=== PATIENT | female | born 1960 | race Caucasian/White ===

== ENCOUNTER 2016-07-11 21:35 | Emergency (ER) | payer SELFPAY ==
[~2016-07-11] VITALS: Ht 165.1 cm; Wt 86.3 kg
[~2016-07-11 21:35] MED LIST: AUGM875T PO; PERC5TAB12 PO
[2016-07-11 21:45] VITALS: BP 152/84; PULSE 97; RESP 18; TEMP 98.7; O2SAT 97
[2016-07-11] MEDS ORDERED: LEVOFLOXACIN 750 MG TAB PO ONE (22:30)
[2016-07-11] MEDS ORDERED: RESP: ALBUTEROL 2.5 MG/IPRATROPIUM 0.5 MG NEB (SCH) INH ONE (22:30)
[2016-07-11] MEDS ORDERED: predniSONE 20 MG TAB PO ONE (22:30)
--- NOTE | 2016-07-11 22:36 | PD ---
HPI Chief Complaint: Respiratory Symptoms Time Seen by Provider: 22:29 Travel History International Travel<30 days: No Contact w/Intl Traveler<30days: No Traveled to known affect area: No History of Present Illness HPI 56-year-old female presents the emergency Department with 3 week history of respiratory congestion, sinus congestion, postnasal drip, intermittent sore throat, and worsening cough over the last week. Patient states it started 3 weeks ago improve somewhat with take short course of cefuroxime by mouth, that she took for 5 days. Symptoms then worsened and the patient took a short course of ciprofloxacin with mild improvement. These ended several days ago and now she is having worsening symptoms especially with sinus congestion, postnasal drip, sore throat, and hacking cough. Patient has mild wheezing and dyspnea with exertion. She denies chest pain however and no nausea vomiting or diarrhea. She has had chills but no specific reports of fever. Patient has multiple medication allergies, and her steroid allergies are to the skin, but she has taken oral prednisone in the past without difficulty. PFSH Past Medical History Hx Anticoagulant Therapy: No Cancer: Yes (BONE MARROW) Diabetes: No Diminished Hearing: No Glaucoma: No Hepatitis: No Hiatal Hernia: No Hypertension: No Immunizations Current: Yes Thyroid Disease: No Past Surgical History Abdominal Surgery: Yes (APPENDECTOMY, CHOLECYSTECTOMY) Cardiac Surgery: No Ear Surgery: No Endocrine Surgery: No Eye Surgery: No Genitourinary Surgery: No Gynecologic Surgery: Yes (RIGHT OVARY REMOVED) Oral Surgery: Yes (4 WISDOMS TEETH REMOVED) Pacemaker: No Thoracic Surgery: No Other Surgery: Yes Social History Alcohol Use: No Tobacco Use: No Substance Use: No Allergies-Medications (Allergen,Severity, Reaction): Coded Allergies: Dexamethasone (Verified Allergy, Severe, Hives, 03/12/16) Dilaudid (Verified Allergy, Severe, Anaphylaxis, 03/12/16) Fiorinal (Verified Allergy, Severe, Anaphylaxis, 03/12/16) Inderal (Verified Allergy, Severe, 03/12/16) Kenalog (Verified Allergy, Severe, 03/12/16) EATS SUBQUT. TISSUE Marcaine (Verified Allergy, Severe, Anaphylaxis, 03/12/16) Morphine (Verified Allergy, Severe, Anaphylaxis, 03/12/16) Sulfa (Verified Allergy, Severe, 03/12/16) Darvocet-N 100 (Verified Allergy, Intermediate, 03/12/16) Reported Meds & Prescriptions Reported Meds & Active Scripts Active Percocet (Oxycodone-Acetaminophen) 5-325 mg Tab 1 Tab PO Q8HR PRN Augmentin (Amoxicillin-Clavulanate) 875-125 mg Tab 875 Mg PO Q12HR 10 Days not for use in CrCl <30 ml/min. Review of Systems Except as stated in HPI: all other systems reviewed are Neg General / Constitutional: Positive: Chills, No: Fever Eyes: No: Visual changes HENT: Positive: Headaches, Sore Throat, Rhinitis, Rhinorrhea, Congestion, No: Nosebleed, Neck Stiffness, Neck Pain, Masses, Gingival Bleeding, Dental Difficulties, Ear Discharge, Earache Cardiovascular: No: Chest Pain or Discomfort Respiratory: Positive: Cough, Shortness of Breath, Wheezing, No: Sneezing, Orthopnea, Hemoptysis, Stridor, Night Sweats, Pleuritic Pain Gastrointestinal: No: Nausea, Vomiting, Diarrhea, Abdominal Pain Genitourinary: No: Dysuria Musculoskeletal: No: Pain Skin: No Rash Neurologic: No: Weakness Psychiatric: No: Depression Endocrine: No: Polydipsia Hematologic/Lymphatic: No: Easy Bruising Physical Exam Narrative GENERAL: Patient appears in mild distress. SKIN: Warm and dry. Normal color. Normal turgor. No rash. No diaphoresis. HEAD: Atraumatic. Normocephalic. Patient has bilateral sinus tenderness with palpation and percussion. EYES: Pupils equal and round. No scleral icterus. No injection or drainage. Patient has a resolving subconjunctival hematoma on the left inner sclera. ENT: No nasal bleeding but white nasal discharge is present. Mucous membranes pink and moist. Pharynx appears cobblestoned and mildly erythematous with postnasal drip present. No significant lymphadenopathy is noted. TMs are clear bilaterally. NECK: Trachea midline. Neck is supple without significant lymphadenopathy. CARDIOVASCULAR: Regular rate and rhythm. RESPIRATORY: No accessory muscle use. Coarse with mild expiratory wheezes to auscultation. Breath sounds equal bilaterally. GASTROINTESTINAL: Abdomen soft, non-tender, nondistended. Hepatic and splenic margins not palpable. MUSCULOSKELETAL: Extremities without clubbing, cyanosis, or edema. No obvious deformities. NEUROLOGICAL: Awake and alert. No obvious cranial nerve deficits. Motor grossly within normal limits. Five out of 5 muscle strength in the arms and legs. Normal speech. PSYCHIATRIC: Appropriate mood and affect; insight and judgment normal. Data Data Last Documented VS Vital Signs Date Time Temp Pulse Resp B/P Pulse Ox O2 Delivery O2 Flow Rate FiO2 07/11/16 21:45 98.7 97 18 152/84 97 Orders Prednisone (Deltasone) (07/11/16 22:30) Albuterol-Ipratropium Neb (Duoneb Neb) (07/11/16 22:30) Levofloxacin (Levaquin) (07/11/16 22:30) MDM Medical Decision Making Medical Screen Exam Complete: Yes Emergency Medical Condition: Yes Differential Diagnosis Sinusitis. Bronchitis. Wheezing. Narrative Course Patient is medically stable at time of exam Chest x-ray is not felt warranted based on my history and physical. Patient is given a DuoNeb nebulizer treatment 1 here. Patient is given 60 mg prednisone by mouth. Patient is given her first dose of Levaquin 750 mg by mouth. Patient will be continued on prednisone 20 mg twice a day 5 days. Patient will continue on Levaquin 500 mg daily 10 days. Patient is given an albuterol metered-dose inhaler 2 puffs every 4-6 hours when necessary. Patient should rest and push fluids follow-up with her primary care physician as needed. Patient can return to emergency department if worsening symptoms develop as needed. Diagnosis Primary Impression: Sinusitis, acute maxillary Qualified Code: J01.00 - Acute maxillary sinusitis, recurrence not specified Additional Impression: Acute wheezy bronchitis Referrals: Primary Care Physician Patient Instructions: Acute Bronchitis (ED), General Instructions, How to Use a Metered-Dose Inhaler (ED), Sinusitis (ED) Additional Instructions: Chest x-ray is not felt warranted based on my history and physical. Patient is given a DuoNeb nebulizer treatment 1 here. Patient is given 60 mg prednisone by mouth. Patient is given her first dose of Levaquin 750 mg by mouth. Patient will be continued on prednisone 20 mg twice a day 5 days. Patient will continue on Levaquin 500 mg daily 10 days. Patient is given an albuterol metered-dose inhaler 2 puffs every 4-6 hours when necessary. Patient should rest and push fluids follow-up with her primary care physician as needed. Patient can return to emergency department if worsening symptoms develop as needed. Med/Other Pt SpecificInfo: Prescription(s) given Disposition: 01 DISCHARGE HOME Condition: Stable Robert Wilkins Jul 11, 2016 22:36
[2016-07-11] MEDS ORDERED: PRED20 PO (22:37)
[2016-07-11] MEDS ORDERED: LEVA500T PO (22:37)
[2016-07-11] MEDS ORDERED: VENTAER INH (22:37)
== END 2016-07-11 22:55 | disposition home or self-care (01) ==
LOC: PHEFT 21:35
DX: J01.00 Acute maxillary sinusitis, unspecified (principal); J20.9 Acute bronchitis, unspecified
CPT/HCPCS: 94664; 99283; J7512

== ENCOUNTER 2016-07-29 22:12 | Emergency (ER) | payer SELFPAY ==
[~2016-07-29] VITALS: Ht 162.6 cm; Wt 84.8 kg
[~2016-07-29 22:12] MED LIST changes: +LEVA500T PO; +PRED20 PO; +VENTAER INH
[2016-07-29 22:17] VITALS: BP 144/91; PULSE 89; RESP 16; TEMP 98.4; O2SAT 100
[2016-07-29] MEDS ORDERED: SODIUM CHLORIDE 0.9% FLUSH 10 ML FLUSH IVF PRN (22:45)
--- NOTE | 2016-07-29 22:47 | PD ---
HPI Chief Complaint: Cold / Flu Symptoms Time Seen by Provider: 22:33 Travel History International Travel<30 days: No Contact w/Intl Traveler<30days: No Traveled to known affect area: No History of Present Illness HPI The patient is a 56-year-old female that has been coughing up green sputum for 6 days. The cough is persistent but she states she only gets short of breath if she walks around. She has had some nausea. She has chest discomfort in the anterior portion of her chest bilaterally. She completed a course of Levaquin about a week and a half ago. The Levaquin was 4 maxillary sinusitis. She does not smoke. 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 )) Diabetes: No Diminished Hearing: No Glaucoma: No Hepatitis: No Hiatal Hernia: No Hypertension: No Immunizations Current: Yes Pneumonia: Yes Thyroid Disease: No Influenza Vaccination: No ?: Not : 0 Past Surgical History Abdominal Surgery: Yes Appendectomy: Yes Cardiac Surgery: No Cholecystectomy: Yes Ear Surgery: No Endocrine Surgery: No Eye Surgery: No Genitourinary Surgery: No Gynecologic Surgery: Yes (RIGHT OVARY REMOVED) Oral Surgery: Yes (4 WISDOMS TEETH REMOVED) Pacemaker: No Thoracic Surgery: No Other Surgery: Yes (LIVER BIOPSY) Social History Alcohol Use: No Tobacco Use: No Substance Use: No Allergies-Medications (Allergen,Severity, Reaction): Coded Allergies: Dexamethasone (Verified Allergy, Severe, Hives, 03/12/16) Dilaudid (Verified Allergy, Severe, Anaphylaxis, 03/12/16) Fiorinal (Verified Allergy, Severe, Anaphylaxis, 03/12/16) Inderal (Verified Allergy, Severe, 03/12/16) Kenalog (Verified Allergy, Severe, 03/12/16) EATS SUBQUT. TISSUE Marcaine (Verified Allergy, Severe, Anaphylaxis, 03/12/16) Morphine (Verified Allergy, Severe, Anaphylaxis, 03/12/16) Sulfa (Verified Allergy, Severe, 03/12/16) Darvocet-N 100 (Verified Allergy, Intermediate, 03/12/16) Reported Meds & Prescriptions Reported Meds & Active Scripts Active Review of Systems Except as stated in HPI: all other systems reviewed are Neg Physical Exam Narrative GENERAL: The patient is alert, oriented 3 in moderate distress with her persistent cough. She is in no respiratory distress. Her vital signs show blood pressure 144/91 and otherwise normal. The respirations are only 16 and oximetry is 100%. SKIN: Focused skin assessment warm/dry. HEAD: Atraumatic. Normocephalic. EYES: Pupils equal and round. No scleral icterus. No injection or drainage. ENT: No nasal bleeding or discharge. Mucous membranes pink and moist. The throat is clear without erythema, exudate or abscess. There is no sinus tenderness present. NECK: Trachea midline. No JVD. CARDIOVASCULAR: Regular rate and rhythm. No murmur appreciated. RESPIRATORY: No accessory muscle use. A few scattered wheezes and rhonchi are heard bilaterally. Breath sounds equal bilaterally. GASTROINTESTINAL: Abdomen soft, non-tender, nondistended. Hepatic and splenic margins not palpable. No guarding or rebound is present. MUSCULOSKELETAL: No obvious deformities. No clubbing. No cyanosis. No edema. NEUROLOGICAL: Awake and alert. No obvious cranial nerve deficits. Motor grossly within normal limits. Normal speech. PSYCHIATRIC: Appropriate mood and affect; insight and judgment normal. Data Data Last Documented VS Vital Signs Date Time Temp Pulse Resp B/P Pulse Ox O2 Delivery O2 Flow Rate FiO2 07/29/16 23:15 99 Room Air 07/29/16 23:15 81 16 07/29/16 22:17 98.4 144/91 Orders Complete Blood Count With Diff (07/29/16 22:41) Comprehensive Metabolic Panel (07/29/16 22:41) Influenzae A/B Antigen (07/29/16 22:41) Iv Access Insert/Monitor (07/29/16 22:41) Ecg Monitoring (07/29/16 22:41) Oximetry (07/29/16 22:41) Oxygen Administration (07/29/16 22:41) Chest, Pa & Lat (07/29/16 22:41) Sodium Chloride 0.9% Flush (Ns Flush) (07/29/16 22:45) Albuterol-Ipratropium Neb (Duoneb Neb) (07/29/16 22:45) Sodium Chlor 0.9% 1000 Ml Inj (Ns 1000 M (07/29/16 23:00) Labs Laboratory Tests Test 07/29/16 23:05 White Blood Count 8.3 TH/MM3 Red Blood Count 3.93 MIL/MM3 Hemoglobin 12.3 GM/DL Hematocrit 36.3 % Mean Corpuscular Volume 92.5 FL Mean Corpuscular Hemoglobin 31.4 PG Mean Corpuscular Hemoglobin 33.9 % Concent Red Cell Distribution Width 13.1 % Platelet Count 205 TH/MM3 Mean Platelet Volume 8.5 FL Neutrophils (%) (Auto) 56.1 % Lymphocytes (%) (Auto) 29.9 % Monocytes (%) (Auto) 11.1 % Eosinophils (%) (Auto) 1.9 % Basophils (%) (Auto) 1.0 % Neutrophils # (Auto) 4.6 TH/MM3 Lymphocytes # (Auto) 2.5 TH/MM3 Monocytes # (Auto) 0.9 TH/MM3 Eosinophils # (Auto) 0.2 TH/MM3 Basophils # (Auto) 0.1 TH/MM3 CBC Comment DIFF FINAL Differential Comment Sodium Level 143 MEQ/L Potassium Level 4.0 MEQ/L Chloride Level 108 MEQ/L Carbon Dioxide Level 25.1 MEQ/L Anion Gap 10 MEQ/L Blood Urea Nitrogen 19 MG/DL Random Glucose 94 MG/DL Calcium Level 9.7 MG/DL Albumin 3.7 GM/DL MDM Medical Decision Making Medical Screen Exam Complete: Yes Emergency Medical Condition: Yes Medical Record Reviewed: Yes Interpretation(s) The chest x-ray shows no evidence of pneumonia. The CBC is normal. The influenza A/B antigen is negative for flu a and flu B antigen. Differential Diagnosis Pneumonia, bronchitis, immune disorder, electrolyte imbalance, sinusitis, flu syndrome, nonspecific viral syndrome Narrative Course The patient has a few scattered rhonchi present but the x-ray is normal. She has bronchitis. Unfortunately, this patient does have an immune disorder and despite possible viral etiology for this I will put her on antibiotics. She states Zithromax never works and wants another medication. I will put her on Augmentin. She did get some relief with the DuoNeb treatments. She is encouraged to use her albuterol HFA at home. Diagnosis Primary Impression: Acute wheezy bronchitis Additional Instructions: Follow-up next week with your primary care physician. Med/Other Pt SpecificInfo: Prescription(s) given Scripts Amoxicillin-Clavulanate (Augmentin)875-125 mg [id number] Mg PO BID 10 Days Ref 0 not for use in CrCl <30 ml/min. Prov:Desean Bhardwaj MD 07/29/16 Disposition: 01 DISCHARGE HOME Condition: Stable Desean Bhardwaj MD Jul 29, 2016 22:47
[2016-07-29] MEDS: RESP: ALBUTEROL 2.5 MG/IPRATROPIUM 0.5 MG NEB (SCH) INH (22:55)
--- NOTE | 2016-07-29 22:58 | RADHPO ---
EXAM DATE/TIME: 07/29/2016 22:50 [facility] COMPARISON: No previous studies available for comparison. INDICATIONS : Cough and congestion since June 16. MEDICAL HISTORY : None. SURGICAL HISTORY : [place]. ENCOUNTER: Initial ACUITY: 1 month PAIN SCORE: 0/10 LOCATION: Bilateral chest FINDINGS: PA and lateral views of the chest demonstrate the lungs to be symmetrically aerated without evidence of mass, infiltrate or effusion. The cardiomediastinal contours are unremarkable. Osseous structure s are intact. There is a right subclavian implantable port catheter in place with the tip in the supe rior vena cava. There are surgical clips in the upper right abdomen consistent with prior cholecystec ricardo. CONCLUSION: No acute disease. There is no evidence of pneumonia. Enzo Pearl MD on July 29, 2016 at 22:56 Board Certified Radiologist. This report was verified electronically.
[2016-07-29] MEDS ORDERED: SODIUM CHLOR 0.9% 1000 ML INJ 1,000 ML IV SCH (23:00)
[2016-07-29 23:15] VITALS: PULSE 81; RESP 16; O2SAT 99
[2016-07-29 23:18] LABS: AUTOMATED NEUTROPHIL # 4.6 TH/MM3 (1.8-7.7); BASOPHIL # 0.1 TH/MM3 (0-0.2); EOSINOPHIL # 0.2 TH/MM3 (0-0.4); EOSINOPHIL % 1.9 % (0.0-4.0); HEMATOCRIT 36.3 % (35.0-46.0); HEMO FLAGS DIFF FINAL; LYMPH % 29.9 % (9.0-44.0); LYMPHOCYTE # 2.5 TH/MM3 (1.0-4.8); MEAN CELL VOLUME 92.5 FL (80.0-100.0); MEAN CORPUSCULAR HEMOGLOBIN 31.4 PG (27.0-34.0); MEAN CORPUSCULAR HGB CONC 33.9 % (32.0-36.0); MONO % 11.1 % (0.0-8.0); NEUT % 56.1 % (16.0-70.0); PLATELET COUNT 205 TH/MM3 (150-450); RED BLOOD COUNT 3.93 MIL/MM3 (4.00-5.30); RED CELL DISTRIBUTION WIDTH 13.1 % (11.6-17.2); WHITE BLOOD COUNT 8.3 TH/MM3 (4.0-11.0)
[2016-07-29 23:27] LABS: CHLORIDE 108 MEQ/L (98-107); SODIUM (NA) 143 MEQ/L (136-145)
[2016-07-29 23:30] LABS: ANION GAP 10 MEQ/L (5-15); BICARBONATE 25.1 MEQ/L (21.0-32.0); BLOOD UREA NITROGEN 19 MG/DL (7-18)
[2016-07-29 23:33] LABS: ALT (GPT) 38 U/L (10-53); AST (GOT) 26 U/L (15-37)
[2016-07-29 23:34] LABS: GLOMERULAR FILTRATION RATE 90 ML/MIN (>89)
[2016-07-29 23:35] LABS: TOTAL BILIRUBIN ADULT 0.7 MG/DL (0.2-1.0)
[2016-07-29 23:36] LABS: ALKALINE PHOSPHATASE 132 U/L (45-117)
[2016-07-29] MEDS ORDERED: AUGM875T PO (23:43)
[2016-07-30 00:20] VITALS: BP 140/68; PULSE 82; RESP 16; O2SAT 100
[2016-07-30] MEDS ORDERED: AMOXICILLIN/CLAVULANATE K 875 MG TAB PO ONE (00:30)
== END 2016-07-30 00:39 | disposition home or self-care (01) ==
LOC: PHED 22:12
DX: J40 Bronchitis, not specified as acute or chronic (principal); C85.90 Non-Hodgkin lymphoma, unspecified, unspecified site
CPT/HCPCS: 71020; 80053; 85025; 87804; 94640; 94664; 96360; 99283; J7030

== ENCOUNTER 2017-03-14 22:29 | Emergency (ER) | payer SELFPAY ==
[~2017-03-14 22:29] MED LIST changes: -LEVA500T PO; -PERC5TAB12 PO; -PRED20 PO; -VENTAER INH
[2017-03-14 22:33] VITALS: BP 178/93; PULSE 74; RESP 18; TEMP 98.8; O2SAT 98
[2017-03-14] MEDS ORDERED: oxyCODONE/ACETAMINOPHEN 5 MG/325 MG TAB PO ONE (23:00)
[2017-03-14] MEDS ORDERED: PERC10TA27 PO (23:01)
[2017-03-14] MEDS ORDERED: TYLE325T PO (23:06)
--- NOTE | 2017-03-14 23:13 | PD ---
HPI Chief Complaint: Bite or Sting Time Seen by Provider: 22:49 Travel History International Travel<30 days: No Contact w/Intl Traveler<30days: No Traveled to known affect area: No History of Present Illness HPI This is a 56-year-old female who presents to the emergency department having been attacked by her neighbors dog prior to arrival. She has several bite wounds on her right arm and she thinks her arm twisted because she was holding the leash causing her to have right wrist and hand pain, constant, worse with movement, improved with rest. She also is complaining of some left ankle pain and bruising where the leash tripped her. Her last tetanus shot was in 2011. 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 )) Diabetes: No Diminished Hearing: No Glaucoma: No Hepatitis: No Hiatal Hernia: No Hypertension: No Immunizations Current: Yes Pneumonia: Yes Thyroid Disease: No ?: Not : 0 Past Surgical History Abdominal Surgery: Yes Appendectomy: Yes Cardiac Surgery: No Cholecystectomy: Yes Ear Surgery: No Endocrine Surgery: No Eye Surgery: No Genitourinary Surgery: No Gynecologic Surgery: Yes (RIGHT OVARY REMOVED) Oral Surgery: Yes (4 WISDOMS TEETH REMOVED) Pacemaker: No Thoracic Surgery: No Other Surgery: Yes (LIVER BIOPSY) Social History Alcohol Use: No Tobacco Use: No Substance Use: No Allergies-Medications (Allergen,Severity, Reaction): Coded Allergies: Sulfa (Sulfonamide Antibiotics) (Unverified Allergy, Severe, 03/14/17) aspirin (Unverified Allergy, Severe, Anaphylaxis, 03/14/17) bupivacaine (Unverified Allergy, Severe, Anaphylaxis, 03/14/17) butalbital (Unverified Allergy, Severe, Anaphylaxis, 03/14/17) caffeine (Unverified Allergy, Severe, Anaphylaxis, 03/14/17) dexamethasone (Unverified Allergy, Severe, Hives, 03/14/17) hydromorphone (Unverified Allergy, Severe, Anaphylaxis, 03/14/17) morphine (Unverified Allergy, Severe, Anaphylaxis, 03/14/17) propranolol (Unverified Allergy, Severe, 03/14/17) triamcinolone (Unverified Allergy, Severe, 03/14/17) EATS SUBQUT. TISSUE acetaminophen (Unverified Allergy, Intermediate, 03/14/17) propoxyphene (Unverified Allergy, Intermediate, 03/14/17) Reported Meds & Prescriptions Reported Meds & Active Scripts Active Reported Tylenol (Acetaminophen) 325 Mg Tab 650 Mg PO Q6H PRN Percocet (Oxycodone-Acetaminophen) 10-325 mg Tab 1 Tab PO Q6H PRN Review of Systems Except as stated in HPI: all other systems reviewed are Neg Physical Exam Narrative GENERAL:Well appearing, no acute distress SKIN: 2 cm laceration involving the dorsal right forearm with some adipose tissue exposure, puncture wound right wrist and right volar hand at the base of the thenar eminence with a large amount of ecchymoses along the dorsal aspect of the base of the right thumb HEAD: Atraumatic. Normocephalic. EYES: Pupils equal and round. No injection or drainage. ENT: Moist mucous membranes NECK: Trachea midline. CARDIOVASCULAR: Regular rate and rhythm. No murmur appreciated. 2+ right radial pulse with normal capillary refill. RESPIRATORY: Clear to auscultation. Breath sounds equal bilaterally. GASTROINTESTINAL: Abdomen soft, non-tender, nondistended. MUSCULOSKELETAL: Markedly painful with range of motion of the right from, tender to palpation over the snuffbox and the ulnar aspect of the right wrist. Compartments of the right forearm are soft. Some focal tenderness to palpation over the posterior medial malleolus of the left ankle with some swelling. NEUROLOGICAL: Awake and alert. No obvious cranial nerve deficits. Moving all extremities. PSYCHIATRIC: Appropriate mood and affect; insight and judgment normal. Data Data Last Documented VS Vital Signs Date Time Temp Pulse Resp B/P (MAP) Pulse Ox O2 Delivery O2 Flow Rate FiO2 03/14/17 22:52 20 03/14/17 22:33 98.8 74 178/93 (121) 98 Orders Orders Hand, Complete ([id number]) (03/14/17 ) Wrist, Complete ([id number]) (03/14/17 ) Ankle, Complete ([id number]) (03/14/17 ) Oxycodone-Acetamin 5-325 Mg (Percocet (03/14/17 23:00) Lidocaine Pf 1% Inj (Xylocaine-Mpf 1% In (03/14/17 23:15) MDM Medical Decision Making Medical Screen Exam Complete: Yes Emergency Medical Condition: Yes Interpretation(s) X-ray of hand, wrist and ankle are reassuring Differential Diagnosis Dog bite, laceration, wrist sprain, gamekeeper's thumb, ankle sprain, ankle fracture, compartment syndrome Narrative Course This is a 56-year-old female who presents to the emergency department having been attacked by her neighbors dog. She sustained a significant injury to her wrist because of the way the leash pulled and she feels laxity in her right thumb and she has significant pain with movement of the thumb. She has a lot of bruising over the dorsal aspect of the thumb. I'm concerned for a possible ulnar collateral ligament injury. Patient will be placed in a thumb spica. She does have a laceration along the volar aspect of the right forearm. We had along conversation regarding primary versus secondary closure. Patient would prefer to have the wound closed primarily. 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 She'll be placed on Augmentin. I closed the wound loosely to allow for swelling. Patient was given mandatory referral to hand surgery. Procedures Procedure Narrative LACERATION LOCATION: Dorsal right forearm LENGTH: 2 cm NUMBER OF STITCHES/SALVADOR: 2 REPAIR: The area of the laceration was irrigated with normal saline and sterilely draped. The laceration was infiltrated with 5 cc of 1% lidocaine. The wound was copiously irrigated and explored without evidence of foreign body , tendon injury or neurovascular injury. The wound was closed using 5-0 Prolene. This was a single layer repair. A sterile dressing was applied. The patient was advised to keep the dressing clean and dry. Patient tolerated the procedure well. Diagnosis Primary Impression: Dog bite of right upper extremity Qualified Codes: S41.151A - Open bite of right upper arm, initial encounter; W54.0XXA - Bitten by dog, initial encounter Additional Impression: Injury of ligament of hand Qualified Codes: S69.91XA - Unspecified injury of right wrist, hand and finger (s), initial encounter Patient Instructions: General Instructions Departure Forms: Tests/Procedures, Work Release Special Instructions: Patient must limit use of right upper extremity for 2 weeks until she follows with a hand surgeon. Additional Instructions: If you develop fevers, redness, swelling, or discharge from your wound return to the emergency room. Keep your wound dry for 24 hours. After that time, wash gently with warm soap and water. Do not use peroxide. Do not soak in baths or go swimming. Have your sutures removed in 7-10 days. Follow up with hand surgery and keep your hand splinted until then. Med/Other Pt SpecificInfo: Prescription(s) given Scripts Hydrocodone/Acetaminophen (Hydrocodone-Acetamin 5-325 mg) 5 Mg-325 Mg Tablet 1 TAB PO Q6HR Y for PAIN SCALE 4 TO 10, #8 Prov: Renetta Andrade MD 03/14/17 Amoxicillin-Clavulanate (Augmentin) 875-125 Mg Tab 1 TAB PO BID for Infection for 7 Days, #14 TAB 0 Refills Prov: Renetta Andrade MD 03/14/17 Disposition: 01 DISCHARGE HOME Condition: Stable Renetta Andrade MD Mar 14, 2017 23:13
[2017-03-14] MEDS ORDERED: LIDOCAINE HCL 1% PF 30 ML VIAL INFIL ONE (23:15)
--- NOTE | 2017-03-14 23:32 | RADRPT ---
EXAM DATE/TIME: 03/14/2017 23:07 [facility] COMPARISON: No previous studies available for comparison. INDICATIONS : Dog bite, right hand. MEDICAL HISTORY : None. SURGICAL HISTORY : None. ENCOUNTER: Initial ACUITY: 1 day PAIN SCORE: 5/10 LOCATION: Right hand. FINDINGS: Three view examination of the right hand demonstrates no soft tissue swelling, dislocation, or fractu re. The carpal bones appear intact. The interphalangeal and metacarpophalangeal joints are intact. Bony mineralization is normal. No foreign body is seen. There soft tissue swelling at the dorsal as pect of the wrist. CONCLUSION: Soft tissue swelling at the dorsal wrist region. No acute bony injury or foreign body is seen. Bahman Alaniz MD on March 14, 2017 at 23:30 Board Certified Radiologist. This report was verified electronically.
--- NOTE | 2017-03-14 23:32 | RADRPT ---
EXAM DATE/TIME: 03/14/2017 23:07 [facility] COMPARISON: No previous studies available for comparison. INDICATIONS : Dog bite, right wrist. MEDICAL HISTORY : None. SURGICAL HISTORY : None. ENCOUNTER: Initial ACUITY: 1 day PAIN SCORE: 5/10 LOCATION: Right wrist. FINDINGS: Three view examination of the right wrist demonstrates no soft tissue swelling, dislocation, or fract ure. The carpal bones are in normal alignment. The joint spaces are maintained. Bony mineralizatio n is normal. There is soft tissue swelling at the dorsal wrist region. CONCLUSION: Soft tissue swelling. No foreign body or bony injury is seen. Bahman Alaniz MD on March 14, 2017 at 23:29 Board Certified Radiologist. This report was verified electronically.
--- NOTE | 2017-03-14 23:43 | RADRPT ---
EXAM DATE/TIME: 03/14/2017 23:07 [facility] COMPARISON: No previous studies available for comparison. INDICATIONS : Left ankle pain. MEDICAL HISTORY : None. SURGICAL HISTORY : None. ENCOUNTER: Initial ACUITY: 1 day PAIN SCORE: 3/10 LOCATION: Left ankle. FINDINGS: Three view exam was performed of the left ankle. The bony structures are in normal alignment. No ev idence of fracture, dislocation, or soft tissue swelling. The ankle mortise is intact. No radiopaqu e foreign bodies are seen. Bony mineralization is normal. CONCLUSION: No acute disease. Bahman Alaniz MD on March 14, 2017 at 23:40 Board Certified Radiologist. This report was verified electronically.
[2017-03-14] MEDS ORDERED: AUGM875T3 PO (23:49)
[2017-03-14] MEDS ORDERED: HYDR-3516 PO (23:49)
[2017-03-15 00:14] VITALS: BP 140/82
[2017-03-15 00:16] VITALS: RESP 18
== END 2017-03-15 00:28 | disposition home or self-care (01) ==
LOC: PHED 22:29
DX: S51.851A Open bite of right forearm, initial encounter (principal); S69.81XA Other specified injuries of right wrist, hand and finger(s), initial encounter; S61.531A Puncture wound without foreign body of right wrist, initial encounter; S61.431A Puncture wound without foreign body of right hand, initial encounter; M25.572 Pain in left ankle and joints of left foot; Z85.79 Personal history of other malignant neoplasms of lymphoid, hematopoietic and related tissues; W54.0XXA Bitten by dog, initial encounter
CPT/HCPCS: 12001; 73110; 73130; 73610; 99284; L3808

== ENCOUNTER → 2017-03-21 | Outpatient (CLI) | payer SELFPAY ==
[~2017-03-21] MED LIST changes: -AUGM875T PO; +AUGM875T3 PO; +GADODIAMIDE PF 287 MG/ML 5 ML VIAL (for RAD MRI) IVCONTRAST ONE; +HYDR-3516 PO; +PERC10TA27 PO; +TYLE325T PO
--- NOTE | 2017-03-22 07:18 | RADRPT ---
EXAM DATE/TIME: 03/21/2017 16:54 [place] COMPARISON: No previous studies available for comparison. INDICATIONS : Infection, dog bite one week ago. CONTRAST: 18 cc Omniscan (gadodiamide) IV MEDICAL HISTORY : Lymphoma SURGICAL HISTORY : Appendectomy. Cholecystectomy. Right side ankle sx, Port, Liver bx. ENCOUNTER: Initial ACUITY: 1 week PAIN SCORE: 5/10 LOCATION: Right hand TECHNIQUE: Multiplanar, multisequence MRI examination was performed without contrast and after the intravenous a dministration of gadolinium. FINDINGS: BONE/CARTILAGE: Bone marrow signal is homogeneous. Articular cartilage signal is within normal limits. TENDONS: All of the visualized tendons are intact. MISCELLANEOUS: No evidence of joint effusion exam minimal fluid around the first MCP joint. There some soft tissue e philomena in the dorsum of the wrist around the abductor digiting minimi tendon. This edema dorsally poste rior to the distal ulna POST-CONTRAST: There are no abnormal areas of enhancement on the post-contrast images. CONCLUSION: Multiple areas of soft tissue edema including a small amount of fluid around the first MCP joint. I d on't see any obvious retained foreign object or area of susceptibility artifact. No tendinous retract ion is identified. Lei Quintero MD on March 22, 2017 at 7:14 Board Certified Radiologist. This report was verified electronically.
== END ==
LOC: HRAD 15:54
PROVIDERS: ATTEND Orthopaedic Surgery
DX: S61.451A Open bite of right hand, initial encounter (principal); W54.0XXA Bitten by dog, initial encounter
CPT/HCPCS: 73220; A9579